=== PATIENT | female | born 1980 | race Hispanic/Latino ===

== ENCOUNTER 2019-02-15 16:02 | Outpatient (CLI) | payer BC ==
--- NOTE | 2019-02-15 16:18 | RAD ---
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 Lungs:Clear of acute process. No confluent pneumonia, overt edema, pleural effusion, or other acute process. IMPRESSION: No significant acute intrathoracic disease.
== END 2019-02-15 16:03 | disposition home or self-care (01) ==
LOC: BICRAD 16:02
PROVIDERS: ATTEND Family Medicine
DX: M31.30 Wegener's granulomatosis without renal involvement (principal)
CPT/HCPCS: 71046

== ENCOUNTER 2020-09-19 09:22 | Day surgery (SDC) | payer BC ==
[2020-09-19] MEDS ORDERED: Acetaminophen 500 MG TAB PO PRN (09:28)
[2020-09-19] MEDS ORDERED: diphenhydrAMINE 25 MG CAP PO PRN (09:29)
[2020-09-19] MEDS ORDERED: Sodium Chloride 0.9% 20 ML ONE (09:31)
[2020-09-19 14:03] VITALS: BP 114/74; TEMP 98.3
== END 2020-09-19 14:40 | disposition home or self-care (01) ==
LOC: ONC/OP 09:22
PROVIDERS: ATTEND Internal Medicine Hematology & Oncology
PROC: 30233N1 Transfusion of Nonautologous Red Blood Cells into Peripheral Vein, Percutaneous Approach (ICD-10-PCS; principal; 2020-09-19)
DX: D64.9 Anemia, unspecified (principal); D69.6 Thrombocytopenia, unspecified
CPT/HCPCS: 36430; 86850; 86870; 86900; 86901; 86905; 86921; P9016; Q0163